=== PATIENT | male | born 1955 | race American Indian/Alaskan Native ===

== ENCOUNTER 2023-03-04 03:06 | Emergency (ER) | payer OTHER, MEDICAID ==
[~2023-03-04] VITALS: Ht 172.7 cm; Wt 72.7 kg
[~2023-03-04 03:06] MED LIST: CEPH250C28 PO; LEVE500T32 PO; MUPI2OIN2 EX; PERCOT PO
[2023-03-04 03:45] VITALS: BP 110/66
== END 2023-03-04 06:36 | disposition left against medical advice (07) ==
LOC: ER 03:06
DX: S09.8XXA Other specified injuries of head, initial encounter (principal); Z53.21 Procedure and treatment not carried out due to patient leaving prior to being seen by health care provider; W18.11XA Fall from or off toilet without subsequent striking against object, initial encounter; Y93.89 Activity, other specified; Y92.89 Other specified places as the place of occurrence of the external cause; Y99.8 Other external cause status
CPT/HCPCS: 70450; 72125